=== PATIENT | male | born 1990 | race Two or more races ===

== ENCOUNTER 2023-02-02 23:14 | Emergency (ER) | payer OTHER ==
[2023-02-02 23:26] VITALS: BP 130/94; PULSE 16; RESP 90; TEMP 97.9; BMI 21.7
[2023-02-03] MEDS ORDERED: DIPHTH,PERTUSS(ACELL),TET 0.5 ML DISP.SYRIN IM ONE ×2 (00:24→00:31)
== END 2023-02-03 00:42 | disposition home or self-care (01) ==
LOC: FER 23:14
PROC: 09Q0XZZ Repair Right External Ear, External Approach (ICD-10-PCS; principal; 2023-02-02)
PROC: 3E0234Z Introduction of Serum, Toxoid and Vaccine into Muscle, Percutaneous Approach (ICD-10-PCS; 2023-02-02)
DX: S01.311A Laceration without foreign body of right ear, initial encounter (principal); W26.8XXA Contact with other sharp object(s), not elsewhere classified, initial encounter
CPT/HCPCS: 12011-25; 90471; 90715; 99284-25

== ENCOUNTER 2023-02-08 11:08 | Emergency (ER) | payer OTHER ==
[2023-02-08 11:42] VITALS: BP 153/108; PULSE 88; RESP 16; TEMP 98.6; BMI 24.9
== END 2023-02-08 11:58 | disposition home or self-care (01) ==
LOC: FER 11:08
DX: S01.311A Laceration without foreign body of right ear, initial encounter (principal); Y99.9 Unspecified external cause status; Z48.02 Encounter for removal of sutures
CPT/HCPCS: 99281-25